=== PATIENT | female | born 1965 | race Caucasian/White ===

== ENCOUNTER 2016-07-10 04:16 | Day surgery (SDC) | payer BC ==
--- NOTE | ~2016-07-10 | OP ---
Record Of Operation [facility] [address] [place]. [address] NAME: ROZINA MONCADA : 65 STATUS : [facility]#: [id number] AGE: 51 ADM/REG DATE : 07/10/16 MR#: [id number] REPORT SERV DATE: 07/10/16 DICTATED BY: CHAMP HAYS DATE: 07/10/16 REPORT STATUS : Draft TRANSCRIBED BY: MODL DATE: 07/10/16 DATE OF PROCEDURE: 07/10/2016 PREOPERATIVE DIAGNOSIS: Painful retained hardware, L5-S1. POSTOPERATIVE DIAGNOSIS: Painful retained hardware, L5-S1. PROCEDURE: 1. Microscopic navigation-assisted surgery. 2. Hardware removal, L5-S1. SURGEON: Champ Hays D.O. SEED PELLETER: Ramesh Valencia. ANESTHESIA: General. ESTIMATED BLOOD LOSS: 10 mL. INDICATIONS FOR SURGERY: A 51-year-old female, who has had a previous L5-S1 fusion. She is a very thin lady and x-ray now shows a solid fusion at L5-S1. There is no adjacent segment degeneration or instability that has developed by x-ray or MRI. She has rather significant pain on deep palpating over the muscles adjacent to the hardware. We have done a fluoro- guided injection over the hardware. The pain was relieved almost completely for a short period of time appropriate for the duration of the anesthetic. Once the anesthetic wore off, the pain returned. She is now brought to Surgery with a diagnosis of painful retained hardware. DESCRIPTION OF PROCEDURE: She is now taken to Surgery for removal of the hardware. We will use navigational assistance to localize the hardware and avoid the usage of intraoperative x rays. Also, we will use microscopic dissection to lessen the soft-tissue damage and allow faster recovery. Prior to surgery, the risks, benefits, alternatives, and expectations were explained and consent form signed. In the preop holding area, the patient was identified, brought to the operative suite, general anesthetic including endotracheal intubation was administered. She was placed prone on a Enrrique spine frame, bony prominences were carefully padded, thoracolumbar spine scrubbed with Hibiclens solution, DuraPrep was painted, and sterile drapes applied. Intraoperative CT scan with O-arm obtained. CT information used to register the navigational system. With navigational assistance, I identified the hardware of L5-S1, bilateral. A 2-cm skin incision was carried out starting on the right side, a blunt navigator probe placed through the fascia and muscle and docked over the hardware, a muscle dilator was inserted followed by placement of a tubular retractor attached to an arm mount table. The microscope was Record Of Operation [facility] [id number] [place]. [address] NAME: ROZINA MONCADA : 65 STATUS : [facility]#: [id number] AGE: 51 ADM/REG DATE : 07/10/16 MR#: [id number] REPORT SERV DATE: 07/10/16 DICTATED BY: CHAMP HAYS DATE: 07/10/16 REPORT STATUS : Draft TRANSCRIBED BY: MODL DATE: 07/10/16 sterilely draped and used throughout the remainder of the procedure. Under microscopic dissection, we localized the head of the hardware, the set screws were removed, the alen was removed, both pedicle screws were very firmly fixed. As we tried to the separate the screws with the lamina skinning machine feeder, no instability was found, there was a solid fusion for sure. The wound was irrigated after the screws were removed. We then moved to the left side and repeated the same identical steps with a 2-cm incision, placement of a tubular retractor, and removal of the hardware. Finally, after wound irrigation, the fascial opening closed with just a single interrupted #1 Vicryl suture, subcutaneous tissue closed with 2-0 Vicryl suture, 2-0 vertical mattress nylon suture used for skin closure, and sterile dressings were applied. The paraspinous muscle area was injected with Marcaine 0.25% with epinephrine, a total of 30 mL, left and right side. This was mixed with 1 mg of Astramorph. Sterile dressings were applied. The patient was awakened, extubated, and taken to recovery room in satisfactory condition having tolerated the procedure well. Sponge, needle, and instrument counts were correct. No intraoperative complications noted. GM/JESSIE Champ Hays D.O. / [id number] CC: Champ Hays D.O.
[~2016-07-10 04:16] MED LIST: BACLOFEN20 MG PO; FLEXERIL5 MG PO; LORTAB 5 PO; NAP500 PO; NEUR300 PO; NORCO1 TAB PO; VITAMIN B-121000 MC1 SL; VITAMIN B-122500 MCG PO
[2016-07-10 05:29] LABS: HEMOGLOBIN 15.7 g/dL (12.0-16.0)
[2016-07-10 05:30] LABS: HEMATOCRIT 43.9 % (36.0-48.0)
== END 2016-07-10 10:06 | disposition home or self-care (01) ==
LOC: SDC 04:16
PROVIDERS: Orthopaedic Surgery Orthopaedic Surgery of the Spine
PROC: 2W55XYZ Removal of Other Device on Back (ICD-10-PCS; principal; 2016-07-10 05:45)
DX: T84.84XA Pain due to internal orthopedic prosthetic devices, implants and grafts, initial encounter (principal); Z90.89 Acquired absence of other organs
CPT/HCPCS: 84703; 85014; 85018; 88300; 93005; A9270-GY; J0690; J1885; J2250; J2274; J2405; J2710; J3010; J3370